=== PATIENT | male | born 1970 | race Caucasian/White ===

== ENCOUNTER 2017-02-19 19:22 | Emergency (ER) | payer SELFPAY ==
[~2017-02-19] VITALS: Ht 180.3 cm; Wt 80.0 kg
[~2017-02-19 19:22] MED LIST: CEPH500C3 PO; DICL50 PO; PERC5TAB12 PO
[2017-02-19 19:25] VITALS: BP 131/73; PULSE 89; RESP 16; TEMP 97.3; O2SAT 96
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
[2017-02-19] MEDS ORDERED: KETOROLAC TROMETHAMINE 60 MG/2 ML (IM) VIAL IM ONE (21:45)
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
[2017-02-19] MEDS ORDERED: IBUP800T23 PO (22:55)
== END 2017-02-19 23:00 | disposition home or self-care (01) ==
LOC: NEPD 19:22
DX: M26.622 Arthralgia of left temporomandibular joint (principal); F31.9 Bipolar disorder, unspecified; F41.9 Anxiety disorder, unspecified; F20.9 Schizophrenia, unspecified; F17.210 Nicotine dependence, cigarettes, uncomplicated; F10.10 Alcohol abuse, uncomplicated
CPT/HCPCS: 70486; 96372; 99283; J1885